=== PATIENT | male | born 1960 | race Caucasian/White ===

== ENCOUNTER → 2021-05-12 | Outpatient (CLI) | payer SELFPAY | END | disposition home or self-care (01) | LOC: LAB SHORT 11:06 | DX: C44.619 Basal cell carcinoma of skin of left upper limb, including shoulder (principal); L57.0 Actinic keratosis | CPT/HCPCS: 88305 ==

== ENCOUNTER → 2021-08-18 | Outpatient (CLI) | payer BC | END | disposition home or self-care (01) | LOC: LAB 10:49 → LAB SHORT 10:49 → PLD 10:49 | DX: C44.719 Basal cell carcinoma of skin of left lower limb, including hip (principal); L70.0 Acne vulgaris; L57.0 Actinic keratosis; L11.9 Acantholytic disorder, unspecified | CPT/HCPCS: 88305 ==

== ENCOUNTER → 2021-11-18 | Outpatient (CLI) | payer BC | END | disposition home or self-care (01) | LOC: LAB SHORT 10:56 → PLD 10:56 | DX: D22.61 Melanocytic nevi of right upper limb, including shoulder (principal); C44.311 Basal cell carcinoma of skin of nose | CPT/HCPCS: 88305 ==

== ENCOUNTER → 2022-02-21 | Outpatient (CLI) | payer BC | END | disposition home or self-care (01) | LOC: LAB SHORT 10:54 | DX: D03.39 Melanoma in situ of other parts of face (principal); C44.319 Basal cell carcinoma of skin of other parts of face; L72.12 Trichodermal cyst | CPT/HCPCS: 88305 ==

== ENCOUNTER → 2022-04-04 | Outpatient (CLI) | payer BC | LOC: LAB SHORT 08:05 → LAB 08:05 → PLD 08:05 | DX: C44.319 Basal cell carcinoma of skin of other parts of face (principal) | CPT/HCPCS: 88305 ==

== ENCOUNTER → 2022-08-24 | Outpatient (CLI) | payer BC | END | disposition home or self-care (01) | LOC: PLD 11:30 → LAB SHORT 11:30 | DX: C44.612 Basal cell carcinoma of skin of right upper limb, including shoulder (principal); C44.329 Squamous cell carcinoma of skin of other parts of face; D22.39 Melanocytic nevi of other parts of face; C43.61 Malignant melanoma of right upper limb, including shoulder | CPT/HCPCS: 88305; 88342 ==

== ENCOUNTER → 2022-11-29 | Outpatient (CLI) | payer BC | LOC: LAB 10:04 → LAB SHORT 10:04 → PLD 10:04 | DX: D48.5 Neoplasm of uncertain behavior of skin (principal) | CPT/HCPCS: 88305 ==

== ENCOUNTER → 2024-03-19 | Outpatient (CLI) | payer MEDICARE, BC | LOC: LAB SHORT 17:13 → LAB 17:13 | DX: E11.22 Type 2 diabetes mellitus with diabetic chronic kidney disease (principal) | CPT/HCPCS: 83036 ==

== ENCOUNTER → 2024-07-29 | Outpatient (CLI) | payer MEDICARE, BC | LOC: LAB 17:57 → LAB SHORT 17:57 | DX: I12.9 Hypertensive chronic kidney disease with stage 1 through stage 4 chronic kidney disease, or unspecified chronic kidney disease (principal) ==